=== PATIENT | female | born 1950 | race Caucasian/White ===

== ENCOUNTER 2020-06-04 22:41 | Inpatient (IN) | payer OTHER ==
[~2020-06-04] VITALS: Ht 162.6 cm; Wt 67.0 kg
--- NOTE | 2020-06-04 22:46 | PHYS DOC ---
Past History Past Medical History: Anxiety, Arthritis, Bipolar, Bronchitis, Constipation, Dementia, Depression, Fibromyalgia, GERD, Hypertension, Hypothyroid, Schizophrenia, Other Past Medical History Restless leg syndrome, vitamin D deficiency, dystonia, a effective mood disorder, urinary retention, chronic pain, dysphagia, insomnia, Parkinson, rheumatic aortic stenosis, vitamin D deficiency, patient has been designated as DNR, Hx of Falls Past Surgical History: Other General Adult HPI: HPI: - " They said she is not her normal self.. not been taking any her meds the last two days.. She seem more out of it. .. since 8...pm... 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 Patient is a resident at [facility] since 06/17/2019. Patient has a long history of multiple medical problems-dystonia, restless leg syndrome, GI bleeds, urinary retention, hypothyroidism, vitamin D deficiency, hyperlipidemia, schizoaffective disorder, bipolar, depression with psychotic features, major mood depressive episodes, affective mood disorder, abnormal posture and gait disorder, bipolar, dependent on wheelchair, dystonia, hypothyroidism, anxiety disorder, chronic constipation, dysphagia, difficult initiating oral pharyngeal phase of swallowing, chronic edema, hyperlipidemia, chronic insomnia, generalized de conditioning and weakness, parkinson, aortic stenosis, history of rheumatic heart disease, vitamin D deficiency, history of falls, tremor and dementia. Patient reportedly is a DNR. Patient per nursing has not taken any her meds the last 2 days. Patient has been refusing meds. Patient currently requires wheelchair because of down turned feet and leg stiffness. Patient per [facility] has not had any low glucose, fevers, specific ill contacts. No recent travel. No specific recent ill contacts. The patient's primary physician is Dr. Nallely Ureña. Review of Systems: Review of Systems: Pt. currently unable to give a review of systems due to mental status Family History: Family History: Family history is not currently available Current Medications: Current Meds: Patient's meds are unknown no meds sheet sent with patient. No verbal. Allergies: Allergies: Hydrin lotion sulfa,Escitalopram, oxcarbazepine Physical Exam: PE: Constitutional: no acute distress, non-toxic appearance. [] HENT: Normocephalic, atraumatic, bilateral external ears normal, oropharynx moist, no oral exudates, nose normal. [] Did have a good gag Eyes: PERRLA, EOMI, conjunctiva normal, crusty discharge. Attempts to close eyes tightly on exam. Neck: decreased range of motion, no tenderness, supple, no stridor. [] Cardiovascular:Heart rate regular rhythm, no murmur , PMI Lt Aortic systolic ejection murmur? Lungs & Thorax: Bilateral breath sounds equal at apex auscultation [] Abdomen: Bowel sounds normal, soft, no tenderness, no masses, no pulsatile masses. Diaper. Stool. No gross blood. Urinary incontinence. Skin: Warm, dry, no erythema, no rash. Poor turgor] Back: No tenderness, no CVA tenderness. Stiff Extremities: No tenderness, no cyanosis, no clubbing, limited range of motion, no edema. Down turned feet. Stiff legs. Legs are and foam gutters at ankles Neurologic does withdrawal to noxious stimuli, but does not totally cross-react, appears to have distal sensory,, will maintain catatonic positions (example-will hold arms out for several minutes if they are placed extended position-catatonic-) Mild upper hand fine tremor. Psychologic: Affect flat, judgement unable to determine, not verbally interactive ( Note by time pt. transfer to floor very interactive, answers questions, will move all ext. on request, but limited range in legs and feet. . Pt. request s tylenol and ice pack for infiltrated IV Lt forearm.) EKG: EKG: My interpretation EKG shows a sinus rhythm at 72 bpm. With no acute morphology [] Radiology/Procedures: Radiology/Procedures: [] IMAGING REPORT Signed PATIENT: GERARDO LORENZANA ACCOUNT: [id number] : 1950 LOCATION: ER AGE: 70 SEX: F EXAM STATUS: REG ER ORD. PHYSICIAN: SISI THORPE MD REASON: PATIENT FOUND UNRESPONSIVE PROCEDURE: PORTABLE CHEST 1V EXAM: PORTABLE CHEST 1V, CT HEAD AND CERVICAL SPINE WO INDICATION: Reason: PATIENT FOUND UNRESPONSIVE / Spl. Instructions: / History: . TECHNIQUE: Single view COMPARISON: None FINDINGS: The heart size is normal. The great vessels appear unremarkable. There is widening of the mediastinal contours to 8.9 cm, likely resulting from tortuosity of the thoracic aorta. The lungs are clear. There is no pleural effusion or pneumothorax. There are no significant osseous abnormalities. IMPRESSION: Mediastinal widening, potentially reflecting aortic tortuosity. More detailed assessment could be pursued with CT chest with and without IV contrast, angiographic protocol in further evaluation if clinically warranted. Otherwise no acute findings in the chest. EXAM: CT Head without IV contrast INDICATION: Reason: PATIENT FOUND UNRESPONSIVE / Spl. Instructions: / History: TECHNIQUE: Multi-detector row CT images were obtained of the head without the use of IV contrast. All CT scans performed at this facility utilize dose optimization techniques as appropriate to the exam, including the following: Automated exposure control and adjustment of the mA and/or KV according to patient size (this includes techniques or standardized protocols for targeted exams where dose is indication/reason for exam). COMPARISON: None FINDINGS: BRAIN PARENCHYMA: No evidence of acute intraparenchymal hemorrhage or infarct. Mild generalized parenchymal volume loss and white matter low density compatible chronic ischemic microvascular changes present. VENTRICLES & EXTRA-AXIAL SPACES: Ventricles are within normal limits. Basilar cisterns are patent. No pathologic extra-axial fluid collection or mass. ORBITS: Orbital contents are unremarkable. SINUSES: Visualized paranasal sinuses and mastoid air cells are clear. OSSEOUS & SOFT TISSUES: Calvarium and skull base are intact. IMPRESSION: No acute intracranial pathology. EXAM: CT Cervical Spine without IV contrast INDICATION: Reason: PATIENT FOUND UNRESPONSIVE / Spl. Instructions: / History: TECHNIQUE: Multi-detector row CT images were obtained through the cervical spine without the use of IV contrast. Post-processing sagittal and coronal reconstructed images were obtained for interpretation. All CT scans performed at this facility utilize dose optimization techniques as appropriate to the exam, including the following: Automated exposure control and adjustment of the mA and/or KV according to patient size (this includes techniques or standardized protocols for targeted exams where dose is indication/reason for exam). COMPARISON: None FINDINGS: CRANIOCERVICAL JUNCTION: Unremarkable. ALIGNMENT: Alignment is within normal limits. OSSEOUS: No evidence of fracture or bone destruction. DISC SPACES: Disc degenerative changes are noted. FACET JOINTS: Facet hypertrophic changes are present bilaterally. SPINAL CANAL: Unremarkable. NEUROFORAMINA: Unremarkable. SOFT TISSUES: Unremarkable. IMPRESSION: No acute traumatic findings in the cervical spine. Electronically signed by: Leonardo Rodriguez MD (06/04/2020 11:37 PM) [facility] [place] AND SIGNED BY: LEONARDO RODRIGUEZ MD DATE: 06/04/20 4446 CC: SISI THORPE MD; NALLELY UREÑA ~ Heart Score: HEART Score for Chest Pain: HEART Score for Chest Pain Response (Comments) Value History Slighlty/Non-Suspicious 0 ECG Normal 0 Age > 65 2 Risk Factors 1 or 2 Risk Factors 1 Troponin < Normal Limit 0 Total 3 Risk Factors: Risk Factors: DM, Current or recent (<one month) smoker, HTN, HLP, family history of CAD, obesity. Risk Scores: Score 0 - 3: 2.5% MACE over next 6 weeks - Discharge Home Score 4 - 6: 20.3% MACE over next 6 weeks - Admit for Clinical Observation Score 7 - 10: 72.7% MACE over next 6 weeks - Early Invasive Strategies Course & Med Decision Making: Course & Med Decision Making Pertinent Labs and Imaging studies reviewed. (See chart for details) Attempts to call family and primary. For guidance and information on her care. No Answers. Discussed presentation, testing and treatment plan with Dr. MIDDLETON. Admit with Treatment for UTI. Pt. did develope infiltrated IV in Lt forearm. Pt. at time of transfer to [facility] hospital pt. interactive. Moves ext. on request. Answers questions. Complaints infiltrations IV site Lt. forearm. Impression: 1. Mental Status Change 2. Hx of Refusing meds x 2 days ( However had + drug screen for Benzos) 3. Hyponatremia- min. 133 4. UTI 5. Parkinson 6. Hx. of Urinary Retention 7. Hx. Multiple Psych. Issues- Depression, Bipolar, Schizo affective, 8. De conditioned [] Dragon Disclaimer: Dragon Disclaimer: This electronic medical record was generated, in whole or in part, using a voice recognition dictation system. Departure Departure: Disposition: 01 DC HOME SELF CARE/HOMELESS Condition: STABLE Dragon Disclaimer This chart was dictated in whole or in part using Voice Recognition software in a busy, high-work load, and often noisy Emergency Department environment. It may contain unintended and wholly unrecognized errors or omissions. Dragon Disclaimer This chart was dictated in whole or in part using Voice Recognition software in a busy, high-work load, and often noisy Emergency Department environment. It may contain unintended and wholly unrecognized errors or omissions. SISI THORPE MD Jun 04, 2020 22:46
[2020-06-04 23:14] LABS: BASO # 0.1 x10^3/uL (0.0-0.2); BASO % 1 % (0-3); EOS # 0.3 x10^3/uL (0.0-0.7); EOS % 3 % (0-3); HEMATOCRIT 38.8 % (36.0-47.0); LYMPH # 2.4 x10^3/uL (1.0-4.8); LYMPH % 29 % (24-48); MEAN CORPUSCULAR HEMOGLOBIN 32 pg (25-35); MEAN CORPUSCULAR HGB CONC 34 g/dL (31-37); MEAN CORPUSCULAR VOLUME 96 fL (79-100); MONO # 0.7 x10^3/uL (0.0-1.1); MONO % 8 % (0-9); NEUT % 59 % (31-73); PLATELET COUNT 323 x10^3/uL (140-400); RED BLOOD COUNT 4.06 x10^6/uL (3.50-5.40); RED CELL DISTRIBUTION WIDTH 15.4 % (11.5-14.5); WHITE BLOOD COUNT 8.5 x10^3/uL (4.0-11.0)
[2020-06-04 23:24] LABS: CALCIUM 9.7 mg/dL (8.5-10.1); CREATININE 0.7 mg/dL (0.6-1.0); GFR 83.2; POTASSIUM 3.5 mmol/L (3.5-5.1)
[2020-06-04 23:30] LABS: MAGNESIUM 2.3 mg/dL (1.8-2.4)
--- NOTE | 2020-06-04 23:39 | RAD ---
EXAM: PORTABLE CHEST 1V, CT HEAD AND CERVICAL SPINE WO INDICATION: Reason: PATIENT FOUND UNRESPONSIVE / Spl. Instructions: / History: . TECHNIQUE: Single view COMPARISON: None FINDINGS: The heart size is normal. The great vessels appear unremarkable. There is widening of the mediastinal contours to 8.9 cm, likely resulting from tortuosity of the thoracic aorta. The lungs are clear. There is no pleural effusion or pneumothorax. There are no significant osseous abnormalities. IMPRESSION: Mediastinal widening, potentially reflecting aortic tortuosity. More detailed assessment could be pursued with CT chest with and without IV contrast, angiographic protocol in further evaluation if clinically warranted. Otherwise no acute findings in the chest. EXAM: CT Head without IV contrast INDICATION: Reason: PATIENT FOUND UNRESPONSIVE / Spl. Instructions: / History: TECHNIQUE: Multi-detector row CT images were obtained of the head without the use of IV contrast. All CT scans performed at this facility utilize dose optimization techniques as appropriate to the exam, including the following: Automated exposure control and adjustment of the mA and/or KV according to patient size (this includes techniques or standardized protocols for targeted exams where dose is indication/reason for exam). COMPARISON: None FINDINGS: BRAIN PARENCHYMA: No evidence of acute intraparenchymal hemorrhage or infarct. Mild generalized parenchymal volume loss and white matter low density compatible chronic ischemic microvascular changes present. VENTRICLES & EXTRA-AXIAL SPACES: Ventricles are within normal limits. Basilar cisterns are patent. No pathologic extra-axial fluid collection or mass. ORBITS: Orbital contents are unremarkable. SINUSES: Visualized paranasal sinuses and mastoid air cells are clear. OSSEOUS & SOFT TISSUES: Calvarium and skull base are intact. IMPRESSION: No acute intracranial pathology. EXAM: CT Cervical Spine without IV contrast INDICATION: Reason: PATIENT FOUND UNRESPONSIVE / Spl. Instructions: / History: TECHNIQUE: Multi-detector row CT images were obtained through the cervical spine without the use of IV contrast. Post-processing sagittal and coronal reconstructed images were obtained for interpretation. All CT scans performed at this facility utilize dose optimization techniques as appropriate to the exam, including the following: Automated exposure control and adjustment of the mA and/or KV according to patient size (this includes techniques or standardized protocols for targeted exams where dose is indication/reason for exam). COMPARISON: None FINDINGS: CRANIOCERVICAL JUNCTION: Unremarkable. ALIGNMENT: Alignment is within normal limits. OSSEOUS: No evidence of fracture or bone destruction. DISC SPACES: Disc degenerative changes are noted. FACET JOINTS: Facet hypertrophic changes are present bilaterally. SPINAL CANAL: Unremarkable. NEUROFORAMINA: Unremarkable. SOFT TISSUES: Unremarkable. IMPRESSION: No acute traumatic findings in the cervical spine. Electronically signed by: Alcides Rodriguez MD (06/04/2020 11:37 PM) [facility] [place]
[2020-06-04 23:49] LABS: BARBITURATES NEG (NEG); BENZODIAZEPINES POS (NEG); CANNABINOIDS NEG (NEG); COCAINE NEG (NEG); METHADONE NEG (NEG); OPIATES NEG (NEG); PHENCYCLIDINE NEG (NEG)
[2020-06-04 23:50] LABS: AMPHETAMINE/METHAMPHETAMINE NEG (NEG)
[2020-06-04 23:53] LABS: BACTERIA,URINE MANY /HPF (0-FEW); BILIRUBIN,URINE NEG (NEG); CLARITY,URINE HAZY; COLOR,URINE YELLOW; GLUCOSE,URINE NEG (NEG); NITRITE,URINE NEG (NEG); UROBILINOGEN,URINE 0.2 mg/dL (0.2 mg/dL); WBC,URINE >40 /HPF (0-4)
[2020-06-05] MEDS ORDERED: SODIUM BICARB ADULT 8.4% 50 MEQ/50 ML DISP.SYRIN. IV ONE (00:30)
[2020-06-05] MEDS ORDERED: cefTRIAXone SODIUM 1 GM VIAL ONE (00:33)
[2020-06-05] MEDS ORDERED: SODIUM BICARB ADULT 8.4% 50 MEQ/50 ML DISP.SYRIN. ONE (00:34)
[2020-06-05] MEDS ORDERED: ACETAMINOPHEN 160 MG/5 ML ORAL.SUSP. PO ONE (01:00)
[2020-06-05] MEDS ORDERED: ERYTHROMYCIN 0.5% OPHTH OINTMENT 1GM TUBE. OS ONE (01:00)
[2020-06-05] MEDS ORDERED: IV RINGERS SOLUTION,LACTATED 1,000 ML IV ONE (01:15)
[2020-06-05] MEDS ORDERED: ACETAMINOPHEN 325 MG TABLET PO PRN (01:15)
[2020-06-05 02:02] VITALS: BP 159/89
--- NOTE | 2020-06-05 02:06 | EKG ---
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
[2020-06-05] MEDS ORDERED: LACT1CAP2 PO (02:11)
[2020-06-05] MEDS ORDERED: ACET325T21 PO (02:11)
--- NOTE | 2020-06-05 02:59 | NUR ---
PT admitted for unresponsiveness at facility ([facility]). PT responsive in ER, in ambulance and on gurney while being taken to room. PT verbally unresponsive on assessment. PT will turn away while talking to her, respond to light pain, squeeze eyes shut, and when assessing IV and foot drop, would leave extremity in the air until told to lower the extremity. Per facility, PT is DNR, has refused all medications for the last several days and refused influenza vaccine. PT is wheelchair bound. Last COVID test resulted 06/03/20 negative from facility. PT goes by middle name of Christie. PT is incontinent of bowel and bladder. Incontinence assessed at time of admission. PT is clean, dry, placed in tabbed brief. Telemetry applied. PT is NSR on telemetry. PT with history of Parkinson's with subsequent dystonia and foot drop, multiple psych diagnoses, hypothyroidism, GERD with history of GI hemorrhage. See [facility] for further details. History and medication list obtained from facility paperwork and speaking with night RN.
[2020-06-05] MEDS ORDERED: TRAZ-120 PO (03:06)
[2020-06-05] MEDS ORDERED: HYDR-2155 PO (03:06)
[2020-06-05] MEDS ORDERED: NYST15PO9 TP (03:06)
[2020-06-05] MEDS ORDERED: ASPI81TA59 PO (03:06)
[2020-06-05] MEDS ORDERED: PANT40TA6 PO (03:06)
[2020-06-05] MEDS ORDERED: BENZ2TAB5 PO (03:06)
[2020-06-05] MEDS ORDERED: POTA15TA9 PO (03:06)
[2020-06-05] MEDS ORDERED: TRIH2TAB3 PO (03:06)
[2020-06-05] MEDS ORDERED: [UNRECOGNIZED DRUG - CODE] PO (03:06)
[2020-06-05] MEDS ORDERED: TRAM50TA PO (03:06)
[2020-06-05] MEDS ORDERED: TEMA15CA PO (03:06)
[2020-06-05] MEDS ORDERED: POLY17PO5 PO (03:06)
[2020-06-05] MEDS ORDERED: LEVO75TA5 PO (03:06)
[2020-06-05] MEDS ORDERED: ATOR20TA PO (03:06)
[2020-06-05] MEDS ORDERED: FURO-69 PO (03:06)
[2020-06-05] MEDS ORDERED: CHOL400T36 PO (03:06)
[2020-06-05] MEDS ORDERED: CLON1TAB PO (03:06)
[2020-06-05] MEDS ORDERED: VENL150C PO (03:06)
[2020-06-05] MEDS ORDERED: LORA0.5T21 PO (03:06)
[2020-06-05] MEDS ORDERED: APIX2.5T PO (03:06)
[2020-06-05] MEDS ORDERED: CALC-56 PO (03:06)
[2020-06-05] MEDS ORDERED: LOPE2TAB27 PO (03:06)
[2020-06-05] MEDS ORDERED: MULT-245 PO (03:06)
[2020-06-05] MEDS ORDERED: DOCU100C28 PO (03:06)
[2020-06-05] MEDS ORDERED: SENN1TAB99 PO (03:06)
[2020-06-05] MEDS ORDERED: FLUP5TAB13 PO (03:06)
[2020-06-05] MEDS ORDERED: LORA10TA55 PO (03:06)
[2020-06-05] MEDS ORDERED: IPRATRPIUM/ALBUTEROL 0.5/2.5MG 3 ML NEBU. ONE (05:06)
--- NOTE | 2020-06-05 05:29 | NUR ---
PT alert, responsive and talkative (able to carry a conversation fully) at time of breathing treatment per RT.
[2020-06-05 05:52] VITALS: BP 120/77
[2020-06-05] MEDS ORDERED: IPRATRPIUM/ALBUTEROL 0.5/2.5MG 3 ML NEBU. IH SCH (08:00)
[2020-06-05] MEDS ORDERED: POLYETHYLENE GLYCOL 3350 17 GM PACKET. PO PRN (08:45)
[2020-06-05] MEDS: ERYTHROMYCIN 0.5% OPHTH OINTMENT 1GM TUBE. OU SCH ×2 (08:52→21:13)
[2020-06-05] MEDS: LEVOTHYROXINE 75 MCG TABLET PO SCH (08:59)
[2020-06-05] MEDS: APIXABAN 2.5 MG TABLET PO SCH ×2 (08:59→21:13)
--- NOTE | 2020-06-05 09:49 | NUR ---
PATIENT IS IN E BED UPON ASSESSMENT THIS AM, UNRESPONSIVE TO THIS RN, KEEPS HER EYELIDS CLOSED VERY TIGHT, THIS RN UNABLE TO ADMINISTER OPHTHALMIC OINTMENT , PATIENT REFUSES TO OPEN HER MOUTH AND EYES TO TAKE MEDICATIONS. PATIENT SPOKE TO MONUMENT CARVER YOBANY THIS AM, PATIENT STATED HER APPETITE IS POOR AND SHE WILL SKIP THE BREAKFAST. PATIENT ALSO STATED SHE IS AFRAID OF DEMONS . PATIENT COOPERATED WITH MONUMENT CARVER DURING ADLS.
[2020-06-05] MEDS ORDERED: IPRATRPIUM/ALBUTEROL 0.5/2.5MG 3 ML NEBU. IH PRN (10:45)
[2020-06-05 11:12] VITALS: BP 137/75
--- NOTE | 2020-06-05 13:36 | NUR ---
PATIENT SPOKE TO THIS RN, STATED SHE UNABLE TO EAT HER LUNCH D/T NAUSEA. ZOFRAN WAS OFFERED ORDERED , PATIENT REFUSED TO HAVE ZOFRAN ADMINISTERED, PATIENT STATED SHE WILL TRY TO HAVE ENSURE. PATIENT TOLERATED ENSURE 240 ML WITHOUT N/V.
[2020-06-05 15:07] VITALS: BP 108/73
[2020-06-05] MEDS: ONDANSETRON PF 4 MG/2 ML VIAL. IVP PRN ×2 (17:01→21:21)
--- NOTE | 2020-06-05 17:12 | NUR ---
PATIENT HAD ONE EPISODE OF NAUSEA WITH VOMITING BEFORE DINNER TIME. ZOFRAN GIVEN ORDERED . PATIENT STATED SHE WON'T EAT DINNER BUT WOULD LIKE MORE ENSURE LATER.
[2020-06-05] MEDS: IV RINGERS SOLUTION,LACTATED 1,000 ML IV SCH (17:49)
--- NOTE | 2020-06-05 18:30 | HP ---
ADMIT DATE: 06/05/2020 ATTENDING PHYSICIAN: Dr. Middleton. CHIEF COMPLAINT: Altered mentation. HISTORY OF PRESENT ILLNESS: The patient is a 70-year-old female, long-term residential resident with multiple medical and psychiatric issues. She was sent in to the ED because the nursing staff there said she has not been taking any of her meds for the last 2 days. She does not seem herself. Clinically, she appears in a catatonic state. She is nonverbal. The workup did not show anything significant. She has had a longstanding history of schizoaffective disorder, depression, dementia, bipolar disorder. She also has anxiety, hypertension, hypothyroidism, gastroesophageal reflux disease, vitamin D deficiency, dystonia, mood disorder, urinary retention, Parkinson's disease, rheumatic aortic stenosis, vitamin D deficiency. She is a DNR per advance directive. She is nonambulatory. PAST MEDICAL HISTORY: Significant for the above conditions. MEDICATIONS: At the residential include the following: She was on scheduled Eliquis, loratadine, Lipitor, aspirin, hydrocodone p.r.n., tramadol p.r.n., Tylenol, Klonopin, trazodone, Effexor, fluphenazine, lorazepam, Restoril, benztropine, Artane, potassium, calcium, Lasix, lactobacillus, loperamide, docusate, MiraLax, senna, Synthroid, nystatin, vitamin D3 and multivitamin. ALLERGIES: She has multiple allergies including LAC-HYDRIN SOLUTION, SULFA, CITALOPRAM AND OXCARBAZEPINE. SOCIAL HISTORY: She is a nonsmoker, nondrinker. FAMILY HISTORY: Unobtainable. REVIEW OF SYSTEMS: Unobtainable. PHYSICAL EXAMINATION: GENERAL: When I saw her, this is an elderly female who is in a fairly catatonic state. She was nonresponsive. Her fists were somewhat clenched. INITIAL VITAL SIGNS: Showed a blood pressure of 120/77 mmHg, temperature 98.2 degrees Fahrenheit, pulse 81 and regular, oxygen saturation 98% on room air. HEENT: Head is without trauma. Pupils are reactive and pinpoint. NECK: Supple. No bruits. LUNGS: Otherwise clear with shallow respirations. CARDIOVASCULAR: Showed regular heart tones. There is a soft, grade 2, early systolic ejection murmur at the left sternal border. Peripheral pulses are palpable and full. ABDOMEN: Soft, scaphoid, nontender. No organomegaly. Bowel sounds are hypoactive. EXTREMITIES: Without edema. Both of her ankles are contracted and turned inward. She is nonambulatory at this time. SKIN: Otherwise warm and dry. NEUROLOGIC: The patient is nonresponsive. She is not aware of person, place or time. The obligatory CT of the head showed no acute changes. Cervical spine films are unremarkable. LABORATORY DATA: The chest x-ray showed a widened mediastinum, tortuous aorta, no acute changes identified. The hemoglobin is 13.0 g/dL with a white count of 8500. Electrolytes are fairly normal. Sodium is 133, creatinine 0.7 mg percent. Cardiac enzymes were negative. Nonfasting blood sugar 114. Troponin was nonischemic. Ammonia level was less than 10 and C-reactive protein looking for inflammation was normal at 1.1. ASSESSMENT: 1. A 70-year-old female with altered mentation. 2. Catatonia. 3. Schizoaffective disorder. 4. Bipolar disorder. 5. Polypharmacy. 6. Generalized debilitation. 7. Hypothyroidism, on replacement. 8. Hypertension. 9. Muscular contractures and the patient is nonambulatory. PLAN: 1. Admit to our inpatient unit. 2. I have held most of her psych meds and her narcotics. 3. Diet as tolerated. 4. We shall arrange with social media director to have a safe discharge plan back to the residential. QIAN MIDDLETON MD DR: YAO/caleb JOB#: [id number] / [id number]
[2020-06-05 19:51] VITALS: BP 136/76
[2020-06-05] MEDS: LACTOBACILLUS RHAMNOSUS GG 1 CAPSULE. PO SCH (21:13)
[2020-06-06] VITALS (7 sets, daily range): BP systolic 14–165; BP diastolic 71–87
[2020-06-06] MEDS: LEVOTHYROXINE 75 MCG TABLET PO SCH (05:52)
[2020-06-06 06:16] LABS: BASO # 0.1 x10^3/uL (0.0-0.2); BASO % 1 % (0-3); EOS # 0.2 x10^3/uL (0.0-0.7); EOS % 3 % (0-3); HEMOGLOBIN 12.3 g/dL (12.0-15.5); LYMPH # 1.3 x10^3/uL (1.0-4.8); LYMPH % 26 % (24-48); MEAN CORPUSCULAR HEMOGLOBIN 32 pg (25-35); MEAN CORPUSCULAR HGB CONC 33 g/dL (31-37); MEAN CORPUSCULAR VOLUME 96 fL (79-100); MONO # 0.5 x10^3/uL (0.0-1.1); MONO % 10 % (0-9); NEUT # 3.1 x10^3uL (1.8-7.7); NEUT % 60 % (31-73); PLATELET COUNT 284 x10^3/uL (140-400); RED BLOOD COUNT 3.84 x10^6/uL (3.50-5.40); RED CELL DISTRIBUTION WIDTH 15.2 % (11.5-14.5); WHITE BLOOD COUNT 5.1 x10^3/uL (4.0-11.0)
[2020-06-06 06:21] LABS: CALCIUM 9.1 mg/dL (8.5-10.1); CREATININE 0.7 mg/dL (0.6-1.0); GFR 83.2; POTASSIUM 3.1 mmol/L (3.5-5.1)
[2020-06-06] MEDS: LACTOBACILLUS RHAMNOSUS GG 1 CAPSULE. PO SCH ×2 (08:16→21:00)
[2020-06-06] MEDS: IV RINGERS SOLUTION,LACTATED 1,000 ML IV SCH (08:16)
[2020-06-06] MEDS: PANTOPRAZOLE 40 MG TABLET. PO SCH (08:16)
[2020-06-06] MEDS: APIXABAN 2.5 MG TABLET PO SCH ×2 (08:16→21:00)
--- NOTE | 2020-06-06 08:42 | NUR ---
NURSING NOTE: CRITICAL LAB BLOOD CULTURES GRAM + COCCI IN CLUSTERS, IN 1 OF 3 BOTTLES. [address] MIDDLETON ON FLOOR AT TIME OF NOTIFICATION AND STATED PT ON CORRECT ABX FOR TX AT THIS TIME. ROB CHENG
[2020-06-06] MEDS: ERYTHROMYCIN 0.5% OPHTH OINTMENT 1GM TUBE. OU SCH ×2 (09:43→21:00)
[2020-06-06] MEDS ORDERED: MAGNESIUM SULFATE 1GM 100 ML IV ONE (09:45)
[2020-06-06] MEDS ORDERED: POTASSIUM CHLORIDE 20 MEQ TABLET.ER. PO ONE (10:00)
[2020-06-06] MEDS: ONDANSETRON PF 4 MG/2 ML VIAL. IVP PRN (10:05)
--- NOTE | 2020-06-06 10:12 | PN ---
DATE: 06/06/2020 ATTENDING PHYSICIAN: Dr. Middleton. SUBJECTIVE: The patient is much more alert today. She is talking. We had a fairly normal conversation. She says she felt a little queasy. I believe yesterday she was in a catatonic state and she was maybe having a conversion reaction. In any event, we held most of her psychotropic meds. She was not in any acute distress. OBJECTIVE FINDINGS: VITAL SIGNS: Blood pressure today is 131/73 mmHg, her temperature is 98.2 degrees Fahrenheit, oxygen saturation 97% on room air and pulse is 73 and regular. HEENT: Head is without trauma. Pupils are reactive. Sclerae nonicteric. Oropharynx clear. NECK: Supple. LUNGS: Good breath sounds. CARDIOVASCULAR: Showed regular heart tones. No gallops. ABDOMEN: Soft. EXTREMITIES: Without edema. NEUROLOGIC: She has contractures of her ankles. She is nonambulatory. SKIN: Otherwise warm and dry. LABORATORY DATA: One blood culture is tentatively positive for gram-positive cocci. I suspect this is a contaminant. Clinically, she does not appear septic. We are treating her for symptomatic urinary tract infection. She has been on Rocephin. PERTINENT LABORATORY STUDIES: Repeat hemoglobin is 12.3 g/dL, white count 5100. Electrolytes: Sodium 139, potassium 3.1 mEq. ASSESSMENT: A 70-year-old senior living resident with; 1. Altered mentation due to overmedication, improved. 2. Catatonic state, resolved. 3. Longstanding history of schizoaffective disorder. 4. Bipolar disorder. 5. Polypharmacy. 6. Generalized debilitation. 7. Hypothyroidism, on replacement. 8. Hypertension. 9. Muscular contractures. 10. Hypokalemia, asymptomatic. 11. Bacteremia, most likely contaminant. Clinically, she is not septic. 12. Urinary tract infection. PLAN: 1. Continue antibiotics as ordered. 2. I have simplified her psychiatric meds. 3. Potassium and magnesium replacement. 4. Advance diet as tolerated. 5. Pending results of blood cultures, should the blood culture be a contaminant. She can be discharged back to senior living tomorrow with oral antibiotics for her UTI. QIAN MIDDLETON MD DR: YAO/caleb JOB#: [id number] / [id number]
--- NOTE | 2020-06-06 10:25 | NUR ---
NURSING NOTE: PT IN BED UPON ASSESSMENT AND MEDICATION ADMINISTRATION. PT COOPERATIVE WITH MEDICATIONS, REQUESTED THEY BE CRUSHED. PT COMPLAINED OF UPSET STOMACH. ZOFRAN ORDERS RECEIVED. PT RESTING COMFORTABLY. WILL CONTINUE TO MONITOR. ROB CHENG
[2020-06-07] MEDS: ONDANSETRON PF 4 MG/2 ML VIAL. IVP PRN (02:32)
[2020-06-07 05:13] VITALS: BP 147/94
[2020-06-07] MEDS: LEVOTHYROXINE 75 MCG TABLET PO SCH (05:36)
[2020-06-07] MEDS: IV RINGERS SOLUTION,LACTATED 1,000 ML IV SCH (05:36)
[2020-06-07] MEDS: LACTOBACILLUS RHAMNOSUS GG 1 CAPSULE. PO SCH ×3 (08:12→22:10)
[2020-06-07] MEDS: APIXABAN 2.5 MG TABLET PO SCH ×3 (08:13→22:10)
[2020-06-07] MEDS: PANTOPRAZOLE 40 MG TABLET. PO SCH (08:13)
[2020-06-07] MEDS: ERYTHROMYCIN 0.5% OPHTH OINTMENT 1GM TUBE. OU SCH ×3 (08:15→22:09)
[2020-06-07 10:37] VITALS: BP 170/91
[2020-06-07 13:00] VITALS: BP 173/79
[2020-06-07 15:17] VITALS: BP 178/84
[2020-06-07] MEDS: POTASSIUM CL 40MEQ D5-0.45NACL 1,000 ML IV SCH (15:52)
[2020-06-07 20:01] VITALS: BP 157/82
[2020-06-07 23:12] VITALS: BP 168/97
--- NOTE | 2020-06-07 23:15 | NUR ---
CONTACT ISOLATION PT'S FINAL URINE CULTURE AND SENSITIVITY SHOWS E. COLI ESBL. PT PLACED IN CONTACT PRECAUTIONS PER PROTOCOL.
--- NOTE | 2020-06-07 23:20 | NUR ---
PT ABLE TO SWALLOW MEDS WHOLE SUSPENDED IN VANILLA PUDDING, TOLERATED WELL. PT MORE INTERACTIVE TONIGHT. WILLINGLY CONVERSING AND ABLE TO V/U WHEN EDUCATED ON IV ABT.
--- NOTE | 2020-06-08 01:56 | PN ---
DATE: 06/07/2020 SUBJECTIVE: The patient is a 70-year-old female patient, a resident at [facility], who was admitted with altered mental status, has been refusing her medication for today. She was found to be hyponatremic, has Parkinson's disease and was diagnosed with UTI. Her urine culture has grown more than 100,000 colony forming units per mL of Escherichia coli that is extended spectrum beta lactamase. She also has grown gram-positive cocci in the blood culture 1 out of 3 bottles, the growth of Staphylococcus epidermidis. The patient also continued to be refusing her medication. Here she is hypokalemic with a potassium of only 3.1, and therefore, the patient will be switched to IV D5 half normal with 40 mEq of potassium chloride. I will switch her antibiotics, she has ESBL and we will repeat her labs tomorrow and hopefully discharge her back to [facility] tomorrow. CHANO ESCUDERO MD DR: ERICH/caleb JOB#: [id number] / [id number]
[2020-06-08] MEDS: POTASSIUM CL 40MEQ D5-0.45NACL 1,000 ML IV SCH ×3 (02:45→20:46)
[2020-06-08 05:20] VITALS: BP 137/88
[2020-06-08] MEDS: LEVOTHYROXINE 75 MCG TABLET PO SCH (06:33)
[2020-06-08 06:43] LABS: ALBUMIN 3.4 g/dL (3.4-5.0); ALBUMIN/GLOBULIN RATIO 0.9 (1.0-1.7); CALCIUM 9.2 mg/dL (8.5-10.1); CREATININE 0.6 mg/dL (0.6-1.0); GFR 99.4; POTASSIUM 3.7 mmol/L (3.5-5.1); TOTAL BILIRUBIN 0.3 mg/dL (0.2-1.0); TOTAL PROTEIN 7.2 g/dL (6.4-8.2)
[2020-06-08] MEDS: PANTOPRAZOLE 40 MG TABLET. PO SCH (07:30)
[2020-06-08] MEDS: LACTOBACILLUS RHAMNOSUS GG 1 CAPSULE. PO SCH ×2 (07:58→20:44)
[2020-06-08] MEDS: APIXABAN 2.5 MG TABLET PO SCH ×2 (07:58→20:44)
[2020-06-08] MEDS: ERYTHROMYCIN 0.5% OPHTH OINTMENT 1GM TUBE. OU SCH ×2 (07:58→20:44)
--- NOTE | 2020-06-08 08:48 | NUR ---
IP: patient has ESBL in urine, requires contact precautions.
[2020-06-08 10:33] VITALS: BP 146/84
--- NOTE | 2020-06-08 13:37 | NUR ---
NURSING NOTE: PT RESTING IN BED UPON ASSESSMENT. PT REFUSED MEDICATION THIS AM. PT WOULD NOT RESPOND TO ANY QUESTIONS AT THE TIME OF THE ASSESSMENT. PT WAS CLENCHING HER TEETH. PT BEGAN TO TALK AND RESPOND TO QUESTIONS AFTER LUNCH AND WAS CALM AND COOPERATIVE WITH DAILY CARES AT THIS TIME. WILL CONTINUE TO MONITOR. ROB CHENG
--- NOTE | 2020-06-08 14:40 | NUR ---
NURSING NOTE PICC CONSENT ROB CHU SPOKE WITH PT SISTER, DIANA, TO OBTAIN VERBAL CONSENT TO PLACE PICC LINE AFTER DISCUSSING BENEFITS AND RISKS. PT SISTER AGREE'S TO HAVE PICC PLACED. ROB CARCAMO.
[2020-06-08 14:52] VITALS: BP 156/81
[2020-06-08] MEDS ORDERED: ERTAPENEM 1 GM in IV NORMAL SALINE 50ML 50 ML IV SCH (17:00)
--- NOTE | 2020-06-08 17:02 | NUR ---
Order Verified Yes Consent signed Yes TOV per 2 RNs with Kaity You Pt sister Previous PICC placement Unk Past Medical/Surgical history and current diagnosis reviewed Yes Patient Medical /Surgical History Related to PICC line placement None Special considerations for PICC line placement None PICC placement indication alf antibiotic usage, Name of PICC Nurse Tiffanie Davidson RN
--- NOTE | 2020-06-08 17:03 | NUR ---
Procedure: Following complete explanation of the PICC procedure including the indications, risks, and potential complications, informed consent was obtained over phone with patient's sister per 2 RNS The possibility for infection was discussed along with signs, symptoms, and prevention. All the sister's questions were answered. IV Device Protocol was used. Written and verbal patient education was provided. Hand hygiene performed. Standardized central line checklist was utilized. The patient was placed in the supine position, patient did not have a large enough vessel for a picc in the right arm, the left arm was prepped with chlorhexidine and patient draped with maximum sterile barrier. 1 mL 1% lidocaine was infiltrated into the skin to provide local anesthesia. A thorough assessment of the left upper extremity completed. Using real-time ultrasound guidance and standardized micro puncture set, the brachial vein was punctured and a peel away sheath was placed using the modified Seldinger technique. A tip location device was used to ensure adequate catheter placement. The catheter was secured using a securement device and an antimicrobial patch was applied directly on the insertion site followed by a transparent dressing. The purple port withdrew blood and flushed without resistance. Patient tolerated the procedure without apparent complication. A Single Lumen Power PICC placement successful and uncomplicated. Placement verified by EKG tip confirmation system napoleon borjas and ekg observed. Tip located in the low SVC per 3CG Complications: None
[2020-06-08 20:27] VITALS: BP 157/95
--- NOTE | 2020-06-08 20:58 | PDOC ---
Exam Note: Maurizio Note: Please also refer to the separate dictated note~for this date of service dictated separately. Discussed the patient with Nursing staff reviewed the chart.~Reviewed interim history and current functioning. Reviewed vital signs,~Labs/ Radiology~and current medications noted below. Continue current treatment with the changes noted in the dictated addendum note Assessment: Vital Signs/I&O: Vital Signs Date Time Temp Pulse Resp B/P (MAP) Pulse Ox O2 Delivery O2 Flow Rate FiO2 06/08/20 20:27 98.8 90 20 157/95 (115) 96 Room Air I & O 06/07/20 06/07/20 06/08/20 15:00 23:00 07:00 Intake Total 740 ml 1250 ml Balance 740 ml 1250 ml Labs: Laboratory Tests Test 06/08/20 06:03 Sodium Level 136 mmol/L (136-145) Potassium Level 3.7 mmol/L (3.5-5.1) Chloride Level 101 mmol/L (98-107) Carbon Dioxide Level 25 mmol/L (21-32) Anion Gap 10 (6-14) Blood Urea Nitrogen 7 mg/dL (7-20) Creatinine 0.6 mg/dL (0.6-1.0) Estimated GFR (Cockcroft-Gault) 99.4 BUN/Creatinine Ratio 12 (6-20) Glucose Level 116 mg/dL (70-99) H Calcium Level 9.2 mg/dL (8.5-10.1) Total Bilirubin 0.3 mg/dL (0.2-1.0) Aspartate Amino Transferase (AST) 14 U/L (15-37) L Alanine Aminotransferase (ALT) 21 U/L (14-59) Alkaline Phosphatase 94 U/L (46-116) Total Protein 7.2 g/dL (6.4-8.2) Albumin 3.4 g/dL (3.4-5.0) Albumin/Globulin Ratio 0.9 (1.0-1.7) L Current Medications: Meds: Current Medications Medications (Trade) Dose Ordered Sig/Jason Route PRN Reason Start Time Stop Time Status Last Admin Dose Admin Cefoxitin Sodium 1 gm/Sodium Chloride 50 ml @ 100 mls/hr Q8HRS IV 06/07/20 22:30 06/08/20 16:26 DC 11/5/20 14:02 Ertapenem 1 gm/ Sodium Chloride 50 ml @ 100 mls/hr Q24H IV 06/08/20 17:00 06/08/20 17:16 I have reviewed the current psychotropics carefully including drug interactions. Risk benefit ratio favors no change other than as noted in my dictated progress note. Diagnosis: Problems: (1) Mental status alteration EZ HANSEN MD Jun 08, 2020 20:58
--- NOTE | 2020-06-08 22:30 | PN ---
DATE: 06/08/2020 SUBJECTIVE: The patient's is resting, slightly propped up in bed, sleeping comfortably, in no apparent distress. On questioning her, she denied any complaints. Nursing staff stated that she continued to have episodes and she stopped talking to people. PHYSICAL EXAMINATION: GENERAL: When I examined her, she looked pale, no jaundice, cyanosis or thyromegaly. No jugular venous distention. No limb edema. VITAL SIGNS: Her heart rate was 86, blood pressure 156/81, temperature was 99.1, respiratory rate 20, and oxygen saturation was 97%. The rest of clinical exam is stable, has not really changed. Her intake over the last 24 hours was 2690, no output was recorded. LABORATORY DATA: Her lab work this morning showed her serum sodium was 136, potassium 3.7, chloride 101, bicarbonate 25, anion gap of 10, BUN 7, creatinine 0.6, estimated GFR was 99 mL per minute. Her glucose 116, calcium was 9.2. Total bilirubin, AST, ALT, alkaline phosphatase were normal. Total protein 7.1, albumin was 3.4. Her white cell count was 5100, hemoglobin 12, hematocrit 37, MCV 96, and platelet count of 284,000. ASSESSMENT: 1. Altered mental status, resolved. 2. Hyponatremia, resolved. She has urinary tract infection with growth of more than 100,000 colony forming units per mL of ESBL Escherichia coli. 3. She also has grown gram-positive cocci in the blood culture 1/3 with a growth of Staphylococcus epidermidis, likely contamination. 4. Hypokalemia that has resolved. PLAN: To continue with IV D5 half normal with 40 mEq potassium. Continue with cefoxitin. The patient has had a PICC line and tomorrow, she will be switched to ertapenem and to be treated as an outpatient at [facility] to continue 7 days of treatment for her ESBL Escherichia coli. CHANO ESCUDERO MD DR: ERICH/caleb JOB#: [id number] / [id number]
[2020-06-08 23:07] VITALS: BP 146/85
--- NOTE | 2020-06-08 23:26 | NUR ---
PT CHOOSING NOT TO INTERACT THIS EVENING. PT ALLOWED ASSESSMENT, BUT WOULD NOT RESPOND TO ORIENTATION QUESTIONS. PT REFUSED HS MEDS AFTER MULTIPLE ATTEMPTS. PT WITH GREEN DRAINAGE FROM LEFT EYE. PT DID ALLOW THIS RN TO WIPE EYES WITH A WARM CLOTH AND ABT OINTMENT TO BE APPLIED. PT ON Q2HR TURNING SCHEDULE, INCONT OF URINE. BRIEF AND CHUX CHANGED X2 ASSIST. PT OTHERWISE RESTING COMFORTABLY IN BETWEEN TURNS.
[2020-06-09] MEDS: LEVOTHYROXINE 75 MCG TABLET PO SCH (06:00)
[2020-06-09 06:03] VITALS: BP 135/87
[2020-06-09] MEDS: PANTOPRAZOLE 40 MG TABLET. PO SCH (07:30)
[2020-06-09] MEDS: APIXABAN 2.5 MG TABLET PO SCH (08:36)
[2020-06-09] MEDS: ERYTHROMYCIN 0.5% OPHTH OINTMENT 1GM TUBE. OU SCH (08:36)
[2020-06-09] MEDS: LACTOBACILLUS RHAMNOSUS GG 1 CAPSULE. PO SCH (08:36)
[2020-06-09] MEDS ORDERED: ERTA1VIA16 IV (09:09)
--- NOTE | 2020-06-09 10:08 | NUR ---
DISCHARGEPt discharge via [facility]. Pt assisted to stretch for transport to [facility]. SLPICC remains in (L) UE, flushed et capped. Foot pillow (black) and all other possessions sent with patient at time of discharge. Packet sent with EMS providers. Report called to facility.
== END 2020-06-09 10:08 | DRG 640 ==
LOC: ER 22:41 → 1 SOUTH 06-05 01:38
PROVIDERS: ADMIT Hospitalist; ATTEND Hospitalist
DX: E87.1 Hypo-osmolality and hyponatremia (principal); G93.41 Metabolic encephalopathy; N39.0 Urinary tract infection, site not specified; F20.2 Catatonic schizophrenia; G20 Parkinson's disease; E87.6 Hypokalemia; F02.80 Dementia in other diseases classified elsewhere, unspecified severity, without behavioral disturbance, psychotic disturbance, mood disturbance, and anxiety; F31.9 Bipolar disorder, unspecified; F41.9 Anxiety disorder, unspecified; I10 Essential (primary) hypertension; E03.9 Hypothyroidism, unspecified; K21.9 Gastro-esophageal reflux disease without esophagitis; Z66 Do not resuscitate; M79.7 Fibromyalgia; T50.905A Adverse effect of unspecified drugs, medicaments and biological substances, initial encounter; G25.81 Restless legs syndrome; G89.29 Other chronic pain; M19.90 Unspecified osteoarthritis, unspecified site; R53.81 Other malaise; B96.20 Unspecified Escherichia coli [E. coli] as the cause of diseases classified elsewhere; B95.8 Unspecified staphylococcus as the cause of diseases classified elsewhere; E55.9 Vitamin D deficiency, unspecified; E78.5 Hyperlipidemia, unspecified; G24.9 Dystonia, unspecified; I06.0 Rheumatic aortic stenosis; Z91.81 History of falling; Z88.2 Allergy status to sulfonamides; Z88.8 Allergy status to other drugs, medicaments and biological substances; Z91.041 Radiographic dye allergy status; Z99.3 Dependence on wheelchair
CPT/HCPCS: 36415; 36569; 70450; 71045; 72125; 80048; 80053; 80307; 81001; 82140; 82550; 82947; 83735; 84443; 84484; 85025; 85610; 85730; 86140; 87040; 87077; 87086; 87186; 87205; 93005; 94640; 96365; 96375; 99285; J0694; J0696; J1335; J2405; J3475; J7042; J7120

== ENCOUNTER 2020-09-26 09:53 | Inpatient (IN) | payer OTHER ==
[~2020-09-26] VITALS: Ht 152.4 cm; Wt 64.7 kg
[~2020-09-26 09:53] MED LIST: ACET325T21 PO; APIX2.5T PO; ASPI81TA59 PO; ATOR20TA PO; BENZ2TAB5 PO; CALC-56 PO; CHOL400T36 PO; CLON1TAB PO; DOCU100C28 PO; ERTA1VIA16 IV; FLUP5TAB13 PO; FURO-69 PO; HYDR-2155 PO; LACT1CAP2 PO; LEVO75TA5 PO; LOPE2TAB27 PO; LORA-52 PO; LORA0.5T21 PO; MULT-245 PO; NYST15PO9 TP; PANT40TA6 PO; POLY17PO5 PO; POTA15TA9 PO; SENN1TAB99 PO; TEMA15CA PO; TRAM50TA PO; TRAZ-120 PO; TRIH2TAB3 PO; VENL150C PO; [UNRECOGNIZED DRUG - CODE] PO
[2020-09-26] MEDS ORDERED: IV NORMAL SALINE 1,000ML 1,000 ML IV ONE ×2 (10:00→14:15)
[2020-09-26] MEDS ORDERED: ONDANSETRON PF 4 MG/2 ML VIAL. IVP ONE (10:00)
[2020-09-26] MEDS ORDERED: FAMOTIDINE 20 MG/2 ML VIAL IVP ONE (10:00)
--- NOTE | 2020-09-26 10:22 | PHYS DOC ---
Past History Past Medical History: Anxiety, Arthritis, Bipolar, Bronchitis, Constipation, Dementia, Depression, Fibromyalgia, GERD, Hypertension, Hypothyroid, Schizophrenia, Other Additional Past Medical Histor: Parkinsonism,muscle weakness, abonormal posture;rheumatic aortic stenosis Past Medical History Limited secondary to poor historian and history of dementia. Past Surgical History: Other Additional Past Surgical Histo: unknown surgical hx Past Surgical History Limited secondary to poor historian and history of dementia. Smoking: Non-smoker Alcohol Use: None Drug Use: None Social History Limited secondary to poor historian and history of dementia. General Adult EDM: Chief Complaint: GI PROBLEM HPI: HPI: Patient is a 70 year old female who presents with vomiting and toe pain. The patient comes to the ED from [facility] [place] and is demented at her baseline which limited the history. Patient with history of dementia and parkinsonism. According to her facility she vomited that "looked like stool". She was sweating upon exam, but that is apparently her baseline. She denies feeling feverish, but reports some feeling "hot". Denies diarrhea or any shortness of breath or chest pain. She notes that her toes are currently in a lot of pain for which she is asking for medication. She does have a additional history of rheumatoid arthritis. Limited secondary to poor historian and history of dementia. Review of Systems: Review of Systems: Constitutional: Denies fever; reports feeling "hot" Respiratory: Denies cough or shortness of breath Cardiovascular: Denies chest pain or palpitations GI: Reports abdominal pain and vomiting : Denies dysuria or hematuria Musculoskeletal: Denies back pain. Notes some pain in the digits of her feet. Integument: Denies rash or skin lesions Neurologic: Denies headache, focal weakness or sensory changes Review of systems limited secondary to poor historian and history of dementia. Current Medications: Current Meds: Current Medications Medications (Trade) Dose Ordered Sig/Jason Start Time Stop Time Status Last Admin Dose Admin Famotidine (Pepcid Vial) 20 mg 1X ONCE 09/26/20 10:00 09/26/20 10:02 DC 09/26/20 10:13 20 MG Fentanyl Citrate (Fentanyl 2ml Vial) 50 mcg 1X ONCE 09/26/20 10:15 09/26/20 10:16 UNV Ondansetron HCl (Zofran) 4 mg 1X ONCE 09/26/20 10:00 09/26/20 10:02 DC 09/26/20 10:13 4 MG Sodium Chloride 1,000 ml @ 1,000 mls/hr 1X ONCE 09/26/20 10:00 09/26/20 10:59 09/26/20 10:13 1,000 MLS/HR Allergies: Allergies: Allergies Coded Allergies Type Severity Reaction Last Updated Verified I S O L A T I O N *CONTACT* Allergy Unknown 06/08/20 Yes Sulfa (Sulfonamide Antibiotics) Allergy Unknown 06/07/20 Yes escitalopram Allergy Unknown 06/04/20 Yes oxcarbazepine Allergy Unknown 06/04/20 Yes Uncoded Allergies Type Severity Reaction Last Updated Verified LAC HYDRIN LOTION Allergy Unknown 06/04/20 Physical Exam: PE: Constitutional: Well developed, well nourished, no acute distress HENT: Normocephalic, atraumatic Eyes: PERRL, EOMI, conjunctiva normal, no discharge Neck: Normal range of motion, no tenderness, supple Lungs & Thorax: No respiratory distress, equal chest rise and fall Abdomen: Soft, no tenderness, distention noted, rectal exam with hard stool at fingertips at rectal vault, unable to remove (Xavier Gottlieb RN) Skin: Warm, dry, no erythema, no rash Extremities: No tenderness, limited ROM due to rigidity of extremities Neurologic: Alert and oriented X 2, hypertonic limbs Psychologic: Affect normal, patient is confused which is her baseline. EKG: EKG: [] Radiology/Procedures: Radiology/Procedures: PROCEDURE: CT ABD PELV W/ IV CONTRST ONLY CT ABDOMEN+PELVIS W History: Reason: abdominal pain, N/V eval for obstruction / Spl. Instructions: / History: Comparison: None. Technique: CT of the abdomen and pelvis with intravenous contrast. Findings: Minimal bibasilar atelectasis. No pleural or pericardial effusion. Visualized liver is unremarkable. Layering density within the gallbladder may represent sludge or small stones. No biliary ductal dilatation. Mild pancreatic atrophy. Unremarkable spleen and adrenal glands. Unremarkable kidneys. No bladder wall thickening. Incompletely visualized moderate hiatal hernia. No evidence of small bowel obstruction. Mild equalization of the terminal ileum. Extensive well-formed stool distends the entire colon to the rectum. The rectum is dilated to 8.7 cm without evidence of wall thickening or pneumatosis. No pelvic masses. No free fluid or free air. Mild aortoiliac atherosclerotic calcification. No abdominal pelvic adenopathy. Soft tissues are unremarkable. Right total hip arthroplasty. Advanced degenerative changes in the spine with mild anterior wedge compression deformity at L1. Prominent Schmorl's node superior endplate of L2. Impression: 1. Extensive colonic stool burden with dilation of the rectum to 8.7 cm. No evidence of stercoral colitis. No evidence of small bowel obstruction. 2. Moderate partially visualized hiatal hernia. 3. Age-indeterminate mild anterior wedge deformity of L1 vertebral body. 4. Gallbladder sludge or small stones. ------ Exposure: One or more of the following individualized dose reduction techniques were utilized for this examination: 1. Automated exposure control 2. Adjustment of the mA and/or kV according to patient size 3. Use of iterative reconstruction technique. Electronically signed by: Jaun Melvin MD (09/26/2020 11:39 AM) [facility] DICTATED AND SIGNED BY: JAUN MELVIN MD DATE: 09/26/201128 Course & Med Decision Making: Course & Med Decision Making Pertinent Labs and Imaging studies reviewed. (See chart for details) Elderly patient with past medical history of rheumatoid arthritis, parkinsonism, and reported dementia presents from assisted via EMS with report that patient "vomited stool ". Patient's abdomen was distended. Labs obtained and posted to chart. UA via straight cath with signs of infection. Empiric an tibiotic initiated. CT abdomen/pelvis with signs of significant colonic stool burden. Concern for obstipation. Fecal disimpaction attempted but unable to reach stool burden in rectal vault. Patient requiring admission for further evaluation and treatment. Discussed with Dr. Butler (hospitalist) who is in agreement with admission. Discussed findings and plan with patient, who acknowledges understanding and agreement. Dragon Disclaimer: Dragon Disclaimer: This electronic medical record was generated, in whole or in part, using a voice recognition dictation system. Departure Departure: Impression: Primary Impression: Obstipation Additional Impression: Acute UTI Disposition: 09 ADMITTED INPT THIS HOSP Admitting Physician: Balwinder Butler Condition: STABLE Referrals: EMIL UREÑA (PCP) HARPER BERNAL DO Sep 26, 2020 10:22
[2020-09-26 10:25] LABS: BASO # 0.1 x10^3/uL (0.0-0.2); BASO % 1 % (0-3); EOS # 0.1 x10^3/uL (0.0-0.7); EOS % 1 % (0-3); HEMATOCRIT 38.5 % (36.0-47.0); HEMOGLOBIN 12.7 g/dL (12.0-15.5); LYMPH # 1.4 x10^3/uL (1.0-4.8); LYMPH % 14 % (24-48); MEAN CORPUSCULAR HEMOGLOBIN 34 pg (25-35); MEAN CORPUSCULAR HGB CONC 33 g/dL (31-37); MEAN CORPUSCULAR VOLUME 103 fL (79-100); MONO % 10 % (0-9); NEUT # 7.3 x10^3uL (1.8-7.7); NEUT % 74 % (31-73); PLATELET COUNT 336 x10^3/uL (140-400); RED BLOOD COUNT 3.76 x10^6/uL (3.50-5.40); WHITE BLOOD COUNT 9.9 x10^3/uL (4.0-11.0)
[2020-09-26 10:38] LABS: CALCIUM 9.4 mg/dL (8.5-10.1); CREATININE 0.6 mg/dL (0.6-1.0); GFR 99.4; POTASSIUM 4.3 mmol/L (3.5-5.1)
[2020-09-26 10:53] LABS: ALBUMIN 3.2 g/dL (3.4-5.0); TOTAL BILIRUBIN 0.2 mg/dL (0.2-1.0); TOTAL PROTEIN 6.5 g/dL (6.4-8.2)
[2020-09-26] MEDS ORDERED: IOHEXOL 300 MG/ML 75 ML VIAL. IV ONE (11:00)
--- NOTE | 2020-09-26 11:42 | RAD ---
CT ABDOMEN+PELVIS W History: Reason: abdominal pain, N/V eval for obstruction / Spl. Instructions: / History: Comparison: None. Technique: CT of the abdomen and pelvis with intravenous contrast. Findings: Minimal bibasilar atelectasis. No pleural or pericardial effusion. Visualized liver is unremarkable. Layering density within the gallbladder may represent sludge or sma ll stones. No biliary ductal dilatation. Mild pancreatic atrophy. Unremarkable spleen and adrenal gla nds. Unremarkable kidneys. No bladder wall thickening. Incompletely visualized moderate hiatal hernia. No evidence of small bowel obstruction. Mild equaliza tion of the terminal ileum. Extensive well-formed stool distends the entire colon to the rectum. The rectum is dilated to 8.7 cm without evidence of wall thickening or pneumatosis. No pelvic masses. No free fluid or free air. Mild aortoiliac atherosclerotic calcification. No abdomi nal pelvic adenopathy. Soft tissues are unremarkable. Right total hip arthroplasty. Advanced degenerative changes in the spi ne with mild anterior wedge compression deformity at L1. Prominent Schmorl's node superior endplate o f L2. Impression: 1. Extensive colonic stool burden with dilation of the rectum to 8.7 cm. No evidence of stercoral co litis. No evidence of small bowel obstruction. 2. Moderate partially visualized hiatal hernia. 3. Age-indeterminate mild anterior wedge deformity of L1 vertebral body. 4. Gallbladder sludge or small stones. ------ Exposure: One or more of the following individualized dose reduction techniques were utilized for thi s examination: 1. Automated exposure control 2. Adjustment of the mA and/or kV according to patient size 3. Use of iterative reconstruction technique. Electronically signed by: Jaun Faith MD (09/26/2020 11:39 AM) [facility]
[2020-09-26 13:36] LABS: BILIRUBIN,URINE NEG (NEG); CLARITY,URINE CLOUDY; COLOR,URINE YELLOW; GLUCOSE,URINE 100 mg/dL (NEG)
[2020-09-26 13:37] LABS: NITRITE,URINE NEG (NEG); UROBILINOGEN,URINE 0.2 mg/dL (0.2 mg/dL)
[2020-09-26] MEDS ORDERED: ONDANSETRON PF 4 MG/2 ML VIAL. IVP PRN (14:15)
[2020-09-26] MEDS ORDERED: cefTRIAXone SODIUM 1 GM VIAL ONE (14:17)
[2020-09-26] MEDS ORDERED: IV NORMAL SALINE 50ML 50 ML ONE (14:17)
--- NOTE | 2020-09-26 16:09 | HP ---
ADMIT DATE: 09/26/2020 ATTENDING PHYSICIAN: Dr. Middleton CHIEF COMPLAINT: Vomiting up stool. HISTORY OF PRESENT ILLNESS: The patient is a 70-year-old female, longterm resident with multiple medical issues. We know her from a previous admission in ____. She has been vomiting up stool. She has a large fecal impaction, unable to disimpacted from a rectal standpoint, it is in her distal colon. She is admitted then with fecal impaction due to inactivity. PAST MEDICAL HISTORY: Significant for chronic anticoagulation, schizoaffective disorder, catatonic state, dementia, gastroesophageal reflux disease, generalized debilitation, Parkinson's disease and completely bedridden. ALLERGIES: She has allergies to SULFA DRUGS, ESCITALOPRAM, OXCARBAZEPINE AND LAC-HYDRIN, exact reactions unclear. CURRENT MEDICATIONS: Include Tylenol, Eliquis, aspirin, Lipitor, calcium, cholecalciferol, Klonopin, docusate, ertapenem, fluphenazine, Lasix, hydrocodone, lactase, lactobacillus, Synthroid, loratadine, lorazepam, multivitamin, nystatin, Protonix, MiraLax, potassium supplementation, Restoril, tramadol, trazodone, Artane and Effexor. SOCIAL HISTORY: She is a nonsmoker, nondrinker. FAMILY HISTORY: Unobtainable. REVIEW OF SYSTEMS: Significant for the longterm report. She is demented and confused and unfortunately unobtainable. PHYSICAL EXAMINATION: GENERAL: When I saw her, this is a chronically ill-appearing female who was responsive. INITIAL VITAL SIGNS: Showed blood pressure 160/93 mmHg, pulse is 110 and regular. She was afebrile, oxygen saturation 98% on room air. HEENT: Head is without trauma. Pupils are reactive. Sclerae nonicteric. Oropharynx clear with poor dental repair. NECK: Supple, no bruits or stridor. LUNGS: Shallow respirations. CARDIOVASCULAR: Showed regular heart tones. No gallops. ABDOMEN: Distended. Minimal guarding. No rebound tenderness. Bowel sounds were hypoactive. EXTREMITIES: Showed trace edema with ____ wasting. She is nonambulatory. LABORATORY DATA: Hemoglobin 12.7 g, white count 9900. Chemistry panel: Creatinine 0.6 mg percent. Transaminases are normal. Electrolytes are within normal range. Cardiac enzymes are negative for coronary ischemia. CT of the abdomen and pelvis showed extensive colon stool burden with dilatation of the rectum to 8.7 cm, gallbladder sludge, no other pathology identified. ASSESSMENT: 1. A 70-year-old female, longterm resident with obstipation. 2. ____ impaction. 3. Schizoaffective disorder. 4. Underlying dementia. 5. Generalized debilitation. 6. Parkinson's disease. PLAN: 1. Admit to the inpatient unit. 2. Magnesium citrate from above. 3. Home meds have been held. 4. We will try Dulcolax suppositories from below. QIAN MIDDLETON MD DR: YAO/caleb JOB#: [id number] / [id number]
[2020-09-26] MEDS ORDERED: MAGNESIUM CITRATE 296 ML SOLUTION. PO ONE (16:15)
[2020-09-26] MEDS ORDERED: BISACODYL 10 MG SUPP.RECT PR ONE (16:15)
--- NOTE | 2020-09-26 16:16 | NUR ---
ADMISSION-PT ARRIVES VIA EMS FROM ED. SHE IS ON RA, SL-PIV. APPEARS IN NO DISTRESS. SLIDE-TRANSFERRED FROM STRETCHER TO BED. VS ASSESSED, SHE IS NON-TELE. CONTACTED GROUP HOME ET REC'D ADDITIONAL REPORT FROM NURSE, LISA. PT IS POOR HISTORIAN, FAMILY HISTORY QUESTIONS NOT ANSWERED AT THIS TIME.
[2020-09-26 16:37] VITALS: BP 148/86
[2020-09-26] MEDS ORDERED: ONDA4TAB7 PO (16:48)
[2020-09-26] MEDS ORDERED: BACL10TA PO (16:48)
[2020-09-26] MEDS ORDERED: LORA-254 PO (16:48)
[2020-09-26] MEDS ORDERED: CALC300T4 PO (16:48)
[2020-09-26] MEDS ORDERED: POTA20PA30 PO (16:48)
[2020-09-26] MEDS ORDERED: MAGN400O7 PO (16:48)
[2020-09-26] MEDS ORDERED: ZOLP5TAB PO (16:48)
[2020-09-26] MEDS ORDERED: TRIH2TAB3 PO (16:48)
--- NOTE | 2020-09-26 17:29 | NUR ---
NURSING-PT SKIN IS CLEAN, DRY ET INTACT. MOBILITY IS OVERALL POOR RELATED TO CONTRACTURES OF HANDS ET FEET, ET STIFFNESS IN LARGE JOINTS. [facility] PT IS [facility] ONLY FOR TRANSFERS IN THEIR FACILITY. ALL THINGS CONSIDERED, SPECIALTY BED REQUESTED FROM [facility] WORKER AT THIS TIME, TO ASSIST IN MAINTAINING SKIN INTEGRITY ALONG WITH OTHER PREVENTATIVE MEASURES.
[2020-09-26 19:20] VITALS: BP 150/88
[2020-09-26 23:00] VITALS: BP 116/74
[2020-09-27 05:23] VITALS: BP 106/63
[2020-09-27 10:40] VITALS: BP 151/79
--- NOTE | 2020-09-27 13:45 | NUR ---
Wound Care Received consultation for a torn fingernail. Called and spoke with ROB Tao re: having Dr. Ross assess and order antibiotic ointment if he thinks it's necessary. Wound care to sign off.
[2020-09-27 14:43] VITALS: BP 164/90
[2020-09-27] MEDS ORDERED: ACETAMINOPHEN 325 MG TABLET PO PRN (15:30)
[2020-09-27] MEDS ORDERED: MAGNESIUM CITRATE 296 ML SOLUTION. PO ONE (15:30)
[2020-09-27] MEDS ORDERED: POLYETHYLENE GLYCOL 3350 17 GM PACKET. PO PRN (15:30)
[2020-09-27] MEDS ORDERED: MAGNESIUM HYDROXIDE 2,400 MG/30 ML ORAL.SUSP. PO PRN (15:30)
[2020-09-27] MEDS: ONDANSETRON ODT 4 MG TAB.RAPDIS PO SCH (16:30)
--- NOTE | 2020-09-27 17:14 | PN ---
DATE: 09/27/2020 SUBJECTIVE: The patient is a 70-year-old female patient, a [facility] resident with multiple medical issues. She apparently was brought to the Emergency Room with recurrent episode of vomiting. She came from medical house. She is demented at her baseline, which limited history: The patient has history of dementia and parkinsonism. According to the facility, her vomitus looked like stool. She was sweating upon exam, but apparently her baseline. She was evaluated in the Emergency Room and apparently was diagnosed with severe obstipation and UTI and was admitted and started on bisacodyl, magnesium citrate, sodium and IV fluid. Apparently, she has only small liquidy stools, but the patient continued to complain of abdominal pain. PHYSICAL EXAMINATION: GENERAL: When I examined her this afternoon, she was resting slightly propped up in bed, in no apparent distress. She was somewhat pale, but no jaundice, cyanosis or thyromegaly. No jugular venous distention. No lower limb edema. VITAL SIGNS: Her heart rate was 93, blood pressure was 164/90, temperature was 97.7, respiratory rate was 18 and oxygen saturation was 95%. HEAD, EYES, EARS, NOSE, AND THROAT: Showed normocephalic, atraumatic. NECK: Supple. HEART: Showed normal first and second heart sounds. No gallop, rub or murmur. CHEST: Clear to auscultation. No crepitation or rhonchi. ABDOMEN: Slightly distended, soft, nontender. No guarding or rigidity. No organomegaly. All hernial orifice intact. Bowel sounds normal. NEUROLOGIC: She is awake, alert, responding appropriately. All her cranial nerves seem to be grossly intact; however, she has fixed flexion contraction of both upper and lower extremities. RECTAL: I did a rectal exam. The patient was impacted and I did digital disimpaction and removed all the hard stool. She apparently has overflow incontinence with liquid stool was coming around. PLAN: I reconciled all her medication and held basically her narcotic, baclofen, apixaban, aspirin, Tramadol and hydrocodone, continued with all other medication. I also held her furosemide, potassium chloride, and calcium and they may contributing to her constipation. I will check her thyroid function test and repeat all her lab works tomorrow and add bottle mag citrate and decide the further management accordingly. CHANO ESCUDERO MD DR: ERICH/caleb JOB#: [id number] / [id number]
[2020-09-27] MEDS: ZOLPIDEM 5 MG TABLET. PO SCH (19:58)
[2020-09-27] MEDS: LACTOBACILLUS RHAMNOSUS GG 1 CAPSULE. PO SCH (19:58)
[2020-09-27] MEDS: LORazepam 1 MG TABLET PO SCH (19:58)
[2020-09-27] MEDS: traZODone 50 MG TABLET. PO SCH (19:58)
[2020-09-27] MEDS: TRIHEXYPHENIDYL 2 MG TABLET. PO SCH (20:01)
[2020-09-27] MEDS: VENLAFAXINE 50 MG TABLET. PO SCH (20:01)
[2020-09-27] MEDS: BENZTROPINE MESYLATE 1 MG TABLET PO SCH (20:01)
[2020-09-27] MEDS: fluPHENAZine 5 MG/ML ORAL.CONC SOLUTION. PO SCH (20:04)
[2020-09-27 20:39] VITALS: BP 147/82
[2020-09-27 23:18] VITALS: BP 103/67
[2020-09-28 05:31] VITALS: BP 103/66
[2020-09-28] MEDS: LEVOTHYROXINE 75 MCG TABLET PO SCH (05:39)
[2020-09-28 06:18] LABS: HEMATOCRIT 28.6 % (36.0-47.0); HEMOGLOBIN 9.7 g/dL (12.0-15.5); RED BLOOD COUNT 2.86 x10^6/uL (3.50-5.40); WHITE BLOOD COUNT 7.4 x10^3/uL (4.0-11.0)
[2020-09-28 06:38] LABS: ALBUMIN 2.7 g/dL (3.4-5.0); ALBUMIN/GLOBULIN RATIO 0.9 (1.0-1.7); CREATININE 0.6 mg/dL (0.6-1.0); GFR 99.4; POTASSIUM 3.1 mmol/L (3.5-5.1); TOTAL BILIRUBIN 0.4 mg/dL (0.2-1.0); TOTAL PROTEIN 5.7 g/dL (6.4-8.2)
[2020-09-28] MEDS: ONDANSETRON ODT 4 MG TAB.RAPDIS PO SCH ×3 (07:30→17:45)
[2020-09-28] MEDS: MULTIVITAMIN with MINERAL TABLET. PO SCH (09:00)
[2020-09-28] MEDS: VENLAFAXINE 50 MG TABLET. PO SCH ×3 (09:00→20:00)
[2020-09-28] MEDS: LACTASE 3,000 UNIT TABLET PO SCH (09:00)
[2020-09-28] MEDS: TRIHEXYPHENIDYL 2 MG TABLET. PO SCH ×3 (09:00→19:59)
[2020-09-28] MEDS: CETIRIZINE HCL 10 MG TABLET PO SCH (09:00)
[2020-09-28] MEDS: PANTOPRAZOLE 40 MG TABLET. PO SCH (09:00)
[2020-09-28] MEDS: LACTOBACILLUS RHAMNOSUS GG 1 CAPSULE. PO SCH ×2 (09:00→19:58)
[2020-09-28] MEDS: BENZTROPINE MESYLATE 1 MG TABLET PO SCH ×2 (09:00→20:00)
[2020-09-28 11:03] VITALS: BP 130/72
[2020-09-28] MEDS: NEOMY/BACITR/POLYMYXIN OINT PACKET. TP SCH ×2 (11:31→20:01)
[2020-09-28] MEDS: DOCUSATE SODIUM 100 MG CAPSULE PO SCH (11:31)
[2020-09-28] MEDS: LORazepam 1 MG TABLET PO SCH ×2 (11:31→19:59)
[2020-09-28] MEDS: SENNOSIDES/DOCUSATE 8.6/50MG TABLET. PO SCH (11:31)
--- NOTE | 2020-09-28 11:36 | RAD ---
KUB compared to CT scan of the abdomen and pelvis dated September 26, 2020 for fecal impaction. FINDINGS: There is stool throughout the descending colon to the level the rectum. There are air-fille d large and small bowel loops diffusely, which are more prominent than on the prior CT scan. No patho logic ossifications are seen. Degenerative changes of spine are noted. IMPRESSION: 1. Nonobstructive nonspecific bowel gas pattern with worsening air distention of primarily large flako l. There is stool in the descending colon and rectum. Electronically signed by: Darin Mccabe MD (09/28/2020 11:33 AM) [id number]
[2020-09-28 15:09] VITALS: BP 123/79
[2020-09-28] MEDS ORDERED: POTASSIUM CHLORIDE 20 MEQ TABLET.ER. PO ONE (17:00)
[2020-09-28] MEDS ORDERED: METHYLNALTREXONE 12 MG/0.6 ML VIAL. SQ ONE (17:15)
--- NOTE | 2020-09-28 17:19 | PN ---
DATE: 09/28/2020 SUBJECTIVE: The patient is resting, slightly propped up in bed, in no apparent respiratory distress. She is awake, alert. She is feeling somewhat better than yesterday, although she continued to have some abdominal discomfort. We did yesterday digital disimpaction, large amount of very hard stools were removed. I did repeat KUB yesterday and it showed that there is nonobstructive, nonspecific bowel gas pattern with worsening distension, primarily large bowel. There is stool in the descending colon and rectum. PHYSICAL EXAMINATION: GENERAL: When I examined her this afternoon, she looked well, slightly pale, but no jaundice, cyanosis or thyromegaly. No jugular venous distension. No limb edema. VITAL SIGNS: Her heart rate was 73, blood pressure was 123/79, temperature was 97.9, respiratory rate was 14 and her oxygen saturation was 98%. HEAD, EYES, EARS, NOSE AND THROAT: Showed normocephalic, atraumatic. NECK: Supple. HEART: Showed normal first and second heart sounds. No gallop or murmur. CHEST: Clear to auscultation. No crepitation or rhonchi. ABDOMEN: Distended, soft, nontender. NEUROLOGIC: She is awake, alert, responding appropriately. All cranial nerves are intact. She moves upper extremities to much good extent than lower extremities. She has fixed flexion contraction of both lower extremities. Her intake over the last 24 hours was 800, no output was recorded. LABORATORY DATA: Her lab work this morning showed a white cell count 7400, hemoglobin 9.7, hematocrit 28.6, MCV 100, and platelet count 274,000. Her chemistry showed a serum sodium 139, potassium 3.1, chloride 103, bicarbonate 29, anion gap of 7, BUN 21, creatinine 0.6, estimated GFR was 99 mL per minute. Her glucose 102, calcium was 8. Total bilirubin, AST, ALT, alkaline phosphatase were normal. Total protein 5.7, albumin 2.7. Her TSH was high at 11.088. ASSESSMENT: 1. Severe obstipation that required digital disimpaction, likely due to narcotic-induced. 2. Hypothyroidism. 3. Hypokalemia. PLAN: My plan is to start her on potassium supplement. Advance her diet. I would also treat her with 1 dose of Relistor and I actually did a rectal exam and rectal vault was empty. CHANO ESCUDERO MD DR: ERICH/caleb JOB#: [id number] / [id number]
[2020-09-28 19:53] VITALS: BP 118/68
[2020-09-28] MEDS: POTASSIUM CHLORIDE 20 MEQ TABLET.ER. PO SCH (19:59)
[2020-09-28] MEDS: ZOLPIDEM 5 MG TABLET. PO SCH (19:59)
[2020-09-28] MEDS: traZODone 50 MG TABLET. PO SCH (19:59)
[2020-09-28] MEDS: fluPHENAZine 5 MG/ML ORAL.CONC SOLUTION. PO SCH (20:01)
[2020-09-28 22:17] VITALS: BP 119/68
[2020-09-29 05:16] VITALS: BP 94/59
[2020-09-29] MEDS: LEVOTHYROXINE 75 MCG TABLET PO SCH (05:28)
[2020-09-29 06:30] LABS: CALCIUM 7.9 mg/dL (8.5-10.1); CREATININE 0.6 mg/dL (0.6-1.0); GFR 99.4; MAGNESIUM 2.2 mg/dL (1.8-2.4); POTASSIUM 3.8 mmol/L (3.5-5.1)
[2020-09-29 07:00] LABS: HEMATOCRIT 27.2 % (36.0-47.0); RED BLOOD COUNT 2.68 x10^6/uL (3.50-5.40); RED CELL DISTRIBUTION WIDTH 13.7 % (11.5-14.5); WHITE BLOOD COUNT 6.5 x10^3/uL (4.0-11.0)
[2020-09-29] MEDS: LACTOBACILLUS RHAMNOSUS GG 1 CAPSULE. PO SCH (09:20)
[2020-09-29] MEDS: NEOMY/BACITR/POLYMYXIN OINT PACKET. TP SCH (09:20)
[2020-09-29] MEDS: DOCUSATE SODIUM 100 MG CAPSULE PO SCH (09:20)
[2020-09-29] MEDS: CETIRIZINE HCL 10 MG TABLET PO SCH (09:20)
[2020-09-29] MEDS: POTASSIUM CHLORIDE 20 MEQ TABLET.ER. PO SCH ×2 (09:20→13:47)
[2020-09-29] MEDS: LORazepam 1 MG TABLET PO SCH (09:20)
[2020-09-29] MEDS: PANTOPRAZOLE 40 MG TABLET. PO SCH (09:20)
[2020-09-29] MEDS: SENNOSIDES/DOCUSATE 8.6/50MG TABLET. PO SCH (09:21)
[2020-09-29] MEDS: MULTIVITAMIN with MINERAL TABLET. PO SCH (09:21)
[2020-09-29] MEDS: LACTASE 3,000 UNIT TABLET PO SCH (09:21)
[2020-09-29] MEDS: ONDANSETRON ODT 4 MG TAB.RAPDIS PO SCH ×2 (09:21→13:47)
[2020-09-29] MEDS: BENZTROPINE MESYLATE 1 MG TABLET PO SCH (09:22)
[2020-09-29] MEDS: VENLAFAXINE 50 MG TABLET. PO SCH ×2 (09:22→13:47)
[2020-09-29] MEDS: TRIHEXYPHENIDYL 2 MG TABLET. PO SCH ×2 (09:22→13:47)
[2020-09-29 11:09] VITALS: BP 91/60
[2020-09-29 15:21] VITALS: BP 101/64
--- NOTE | 2020-09-29 15:37 | DISCH ---
DISCHARGE ORDERS DISCHARGE DATE: Sep 29, 2020 FINAL DIAGNOSIS severe constipation parkinson disease CONDITION AT DISCHARGE: Stable Code Status: Full SNF STAY <30 DAYS: Yes POST DISCHARGE ORDERS: ACTIVITY ORDERS: Resume previous activity, Activity as tolerated WEIGHT BEARING STATUS: As tolerated TREATMENT/EQUIPMENT ORDERS: ADAPTIVE EQUIPMENT NEEDED: None DISCHARGE MEDICATIONS: Home Meds Reported Medications Ondansetron Hcl (ZOFRAN) 4 Mg Tablet, 4 MG PO TIDBFRMEAL for NAUSEA, TAB 09/26/20 Calcium Carbonate (TUMS X-STR) 300 Mg Tab.chew, 2 TAB PO PRN Q6HRS PRN for HEARTBURN / GAS, TAB.CHEW 09/26/20 Trihexyphenidyl Hcl (TRIHEXYPHENIDYL HCL) 2 Mg Tablet, 2 MG PO TID for DYSTONIA, TAB 09/26/20 Potassium Chloride (KLOR-CON) 20 Meq Packet, 60 MEQ PO DAILY for SUPPLEMENT, PKT 09/26/20 Magnesium Hydroxide (MILK OF MAGNESIA) 400 Mg/5 Ml Oral.susp, 30 ML PO PRN DAILY PRN for CONSTIPATION, LIQUID 09/26/20 Lorazepam (ATIVAN) 1 Mg Tablet, 1 TAB PO BID for anxiety MDD 2 Tablet(s), TAB 0 Refills 09/26/20 Baclofen (BACLOFEN) 10 Mg Tablet, 10 MG PO TID for MUSCLE RELAXER, 0 Refills 09/26/20 Zolpidem Tartrate (AMBIEN) 5 Mg Tablet, 5 MG PO HS for INSOMNIA, TAB 0 Refills 09/26/20 Cholecalciferol (Vitamin D3) (VITAMIN D) 400 Unit Tablet, 800 UNIT PO DAILY for supplement, TAB 06/05/20 Trazodone Hcl (TRAZODONE HCL) 50 Mg Tablet, 0.5 TAB PO QHS for insomnia, #30 TAB 1 Refill 06/05/20 Tramadol Hcl (TRAMADOL HCL) 50 Mg Tablet, 50 MG PO HS for pain, TAB 06/05/20 Sennosides/Docusate Sodium (Senna-Docusate Sodium Tablet) 1 Each Tablet, 2 TAB PO DAILY for constipation for 5 Days, #10 TAB 0 Refills 06/05/20 Pantoprazole Sodium (PANTOPRAZOLE SODIUM) 40 Mg Tablet.dr, 1 TAB PO DAILY for gastrointestinal bleed, #30 TAB 3 Refills 06/05/20 Nystatin (NYSTATIN) 15 Gm Powder, 1 AYESHA TP PRN Q8HRS PRN for REDNESS for 7 Days, #1 BOTTLE 0 Refills apply to affected area(s) 06/05/20 Multivitamin (MULTI VITAMIN DAILY) 1 Each Tablet, 1 TAB PO DAILY for supplement for 30 Days, #30 TAB 0 Refills 06/05/20 Polyethylene Glycol 3350 (MIRALAX) 17 Gm Powd.pack, 1 PACKET PO PRN DAILY PRN for CONSTIPATION for 2 Days, PACKET 0 Refills dissolve in water 06/05/20 Loratadine (LORATADINE) 10 Mg Tab.rapdis, 1 TAB PO DAILY for pruritus for 30 Days, #30 TAB 0 Refills 06/05/20 Levothyroxine Sodium (LEVOTHYROXINE SODIUM) 75 Mcg Tablet, 1 TAB PO DAILY for hypothyriodism, #30 TAB 5 Refills 06/05/20 Furosemide (LASIX) 20 Mg Tablet, 20 MG PO DAILY for edema, TAB 06/05/20 Lactase (Lactaid) 3,000 Unit Tablet, 9000 UNIT PO DAILY for schizoaffective disorder, TAB 06/05/20 Hydrocodone Bit/Acetaminophen (HYDROCODONE-APAP 5-325 ) 1 Each Tablet, 1 TAB PO PRN Q4HRS PRN for PAIN, TAB 0 Refills 06/05/20 Fluphenazine Hcl (FLUPHENAZINE HCL) 5 Mg Tablet, 6 TAB PO QHS for schizoaffective disorder, #30 TAB 1 Refill 06/05/20 Apixaban (ELIQUIS) 2.5 Mg Tablet, 2.5 MG PO BID for VTE, TAB 06/05/20 Venlafaxine Hcl (EFFEXOR XR) 150 Mg Cap.er.24h, 1 CAP PO DAILY for major depressive disorder, #30 CAP 1 Refill 06/05/20 Docusate Sodium (DOCUSATE SODIUM) 100 Mg Capsule, 1 CAP PO DAILY for constipation for 30 Days, #30 CAP 0 Refills 06/05/20 Benztropine Mesylate (BENZTROPINE MESYLATE) 2 Mg Tablet, 1 TAB PO BID for anxiety, #60 TAB 1 Refill 06/05/20 Aspirin (Children's Aspirin) 81 Mg Tab.chew, 1 TAB PO DAILY for VTE for 30 Days, #30 TAB 0 Refills 06/05/20 Lactobacillus Acidophilus (ACIDOPHILUS) 1 Each Capsule, 1 CAP PO TID for health maintance for 14 Days, #42 CAP 0 Refills 06/05/20 Acetaminophen (ACETAMINOPHEN) 325 Mg Tablet, 2 TAB PO PRN Q6HRS PRN for pain or fever for 30 Days, #30 TAB 0 Refills 06/05/20 Discontinued Reported Medications Ertapenem Sodium (INVANZ) 1 Gm Vial, 1 GM IV DAILY for infection for 7 Days, #7 EACH 06/09/20 Trihexyphenidyl Hcl (TRIHEXYPHENIDYL HCL) 2 Mg Tablet, 1 TAB PO DAILY for dystonia, #60 TAB 1 Refill 06/05/20 Temazepam (TEMAZEPAM) 15 Mg Capsule, 0.05 CAP PO QHS for insomnia, #30 CAP 1 Refill 06/05/20 Potassium Citrate (POTASSIUM CITRATE ER) 15 Meq Tablet.er, 4 TAB PO DAILY for supplement for 30 Days, #120 TAB 0 Refills 06/05/20 Calcium Carbonate/Vitamin D3 (CALCIUM 500 + VIT D 200 CAPLET) 1 Each Tablet, 1 TAB PO DAILY for supplement for 30 Days, #30 TAB 0 Refills 06/05/20 Atorvastatin Calcium (LIPITOR) 20 Mg Tablet, 20 MG PO QHS for hyperlipidemia, #30 TAB 0 Refills 06/05/20 Clonazepam (KLONOPIN) 1 Mg Tablet, 1 TAB PO DAILY for schizoaffective disorder, #90 TAB 1 Refill 06/05/20 Lorazepam (ATIVAN ) 0.5 Mg Tablet, 0.5 MG PO PRN BID PRN for ANXIETY, TAB 06/05/20 CHANO ESCUDERO MD Sep 29, 2020 15:37
--- NOTE | 2020-09-29 16:19 | NUR ---
PATIENT IS DISCHARGED BACK TO [facility]. REPORT GIVEN TO RONI RIVAS. PATIENT LEFT ROOM 105 VIA EMS.
--- NOTE | 2020-09-29 18:20 | DS ---
DATE OF DISCHARGE: 09/29/2020 HOSPITAL COURSE: The patient is a 70-year-old female patient, a resident at [facility], who was brought to the Emergency Room with a complaint of abdominal pain and fecal impaction. I actually did digital disimpaction. A large amount of rock-hard stool was removed. We did it actually twice and she was treated with a bottle of mag citrate and also Relistor and she had further some more bowel movement and she did very well. We did advance her diet and she has had no more abdominal pain. PHYSICAL EXAMINATION: GENERAL: When I saw her today, she looked well and was clearly in no apparent distress. Denied any complaint. When I examined her, she looked somewhat pale, but no jaundice, cyanosis or thyromegaly. No jugular venous distention. No limb edema. VITAL SIGNS: Her heart rate was 89, blood pressure was 101/64, temperature 98.3, respiratory rate was 16, and oxygen saturation was 90% on room air. The rest of the exam is stable. LABORATORY DATA: Her lab work this morning showed a white cell count of 6500, hemoglobin 9, hematocrit 27, MCV 101, and platelet count 257,000. Her serum sodium was 137, potassium 3.8, chloride 103, bicarbonate 26, anion gap of 8, BUN 11, creatinine 0.6 cm. Estimated GFR was 99 mL per minute. Her glucose was 82, calcium was 7.9. Her TSH was high at 11.088. I did not adjust her levothyroxine and left to her primary care physician at [facility] to do. FINAL DISCHARGE DIAGNOSES: 1. Fecal impaction, requiring digital disimpaction twice, likely due to narcotic-induced constipation, treated with digital disimpaction as well as Relistor. 2. Hypothyroidism. Her TSH is high and her Synthroid needs to be adjusted. 3. Hypokalemia, resolved. Her serum potassium is 3.8. CHANO ESCUDERO MD DR: ERICH/caleb JOB#: [id number] / [id number] Cori Ash
== END 2020-09-29 16:25 | DRG 391 ==
LOC: ER 09:53 → 1 SOUTH 14:10
PROVIDERS: ADMIT Hospitalist; ATTEND Hospitalist
DX: K59.03 Drug induced constipation (principal); E43 Unspecified severe protein-calorie malnutrition; N39.0 Urinary tract infection, site not specified; E03.9 Hypothyroidism, unspecified; E87.6 Hypokalemia; F02.80 Dementia in other diseases classified elsewhere, unspecified severity, without behavioral disturbance, psychotic disturbance, mood disturbance, and anxiety; F25.9 Schizoaffective disorder, unspecified; G20 Parkinson's disease; I06.0 Rheumatic aortic stenosis; I10 Essential (primary) hypertension; K44.9 Diaphragmatic hernia without obstruction or gangrene; K82.8 Other specified diseases of gallbladder; M06.9 Rheumatoid arthritis, unspecified; M79.7 Fibromyalgia; T40.605A Adverse effect of unspecified narcotics, initial encounter; Z79.01 Long term (current) use of anticoagulants; F32.9 Major depressive disorder, single episode, unspecified; F41.9 Anxiety disorder, unspecified; J40 Bronchitis, not specified as acute or chronic; K21.9 Gastro-esophageal reflux disease without esophagitis; M19.90 Unspecified osteoarthritis, unspecified site; Z74.01 Bed confinement status; Z68.27 Body mass index [BMI] 27.0-27.9, adult
CPT/HCPCS: 36415; 74018; 74177; 80048; 80053; 81003; 82553; 83605; 83690; 83735; 84443; 84484; 85025; 85027; 85610; 85730; 96374; 96375; J0696; J2212; J2405; J3010; J3490; Q0162; 99285-25; J7030

== ENCOUNTER 2020-10-18 10:05 | Emergency (ER) | payer OTHER ==
[~2020-10-18] VITALS: Ht 152.4 cm; Wt 64.7 kg
[~2020-10-18 10:05] MED LIST changes: +BACL10TA PO; +CALC300T4 PO; +LORA-254 PO; +MAGN400O7 PO; +ONDA4TAB7 PO; +POTA20PA30 PO; +ZOLP5TAB PO
--- NOTE | 2020-10-18 10:16 | PHYS DOC ---
Past History Past Medical History: Anxiety, Arthritis, Bipolar, Bronchitis, Constipation, Dementia, Depression, Fibromyalgia, GERD, Hypertension, Hypothyroid, Schizophrenia, Other Additional Past Medical Histor: Parkinsonism,muscle weakness, abonormal posture;rheumatic aortic stenosis Past Surgical History: Other Additional Past Surgical Histo: unknown surgical hx Smoking: Non-smoker Alcohol Use: None Drug Use: None General Adult EDM: Chief Complaint: CONTISPATION HPI: HPI: Patient is a 70-year-old female brought in from nursing facility after she had foul-smelling, fecal-like emesis this morning. Was admitted for a similar episode 3 weeks ago treated with an NG tube. She was diagnosed with a large amount of fecal impaction. Patient says she has some generalized abdominal pain, does not remember how many times she vomited this morning. Review of Systems: Review of Systems: All other systems within normal limits except for as noted in the HPI Allergies: Allergies: Allergies Coded Allergies Type Severity Reaction Last Updated Verified lactic acid Allergy Intermediate 09/27/20 Yes I S O L A T I O N *CONTACT* Allergy Unknown 06/08/20 Yes Sulfa (Sulfonamide Antibiotics) Allergy Unknown 06/07/20 Yes escitalopram Allergy Unknown 06/04/20 Yes oxcarbazepine Allergy Unknown 06/04/20 Yes Physical Exam: PE: Constitutional: Well developed, well nourished, no acute distress, non-toxic appearance. [] HENT: Normocephalic, atraumatic, bilateral external ears normal, nose normal. [] Eyes: PERRLA, conjunctiva normal, no discharge. [] Neck: No rigidity, supple, no stridor. [] Cardiovascular: Regular rate and rhythm, brisk cap refill [] Lungs & Thorax: Non labored symmetric respirations, no tachypnea or respiratory distress [] Abdomen: Soft, nondistended, generalized tenderness palpation, no guarding or rebound. Skin: Warm, dry, no erythema, no rash. [] Back: Unremarkable Extremities: Diffuse contractures, no deformity [] Neurologic: Alert and oriented X 3, no focal deficits noted. [] Psychologic: Affect normal, judgement normal, mood normal. [] EKG: EKG: [] Radiology/Procedures: Radiology/Procedures: CT ABDOMEN+PELVIS WO Clinical Indication: Reason: obstruction Comparison: CT abdomen and pelvis with contrast September 26, 2020. Technique: Helical CT imaging of the abdomen and pelvis is performed without IV or oral contrast. Findings: Evaluation of solid organs and bowel is limited without oral and IV contrast, decreasing sensitivity for detection of pathology. There is minimal atelectasis in the posterior right lower lobe. Lung bases otherwise clear. There is a moderate sized hiatal hernia. There is coronary artery disease. Cardiac size is normal. Respiratory motion artifact limits evaluation of the upper abdomen. No obvious abnormality of the liver, gallbladder, spleen, pancreas, adrenal glands, or abdominal aorta caliber. There is no hydronephrosis. There is no dilated small bowel. The colon is distended with stool. This is most apparent in the rectum measuring up to 9 cm, previously 8.7 cm. No colon wall thickening is identified. The urinary bladder is normal. Uterus unremarkable. No pelvic free fluid is identified. Redemonstrated old compression fractures of the L1 and L2 superior endplates. There is right hip arthroplasty. Mild left convexity thoracolumbar scoliosis. IMPRESSION: 1. Rectum is severely distended with stool suggesting fecal impaction. There is no colitis. 2. Large colon stool volume suggests constipation. 3. Moderate-sized hiatal hernia.[] Heart Score: C/O Chest Pain: N/A Risk Factors: Risk Factors: DM, Current or recent (<one month) smoker, HTN, HLP, family history of CAD, obesity. Risk Scores: Score 0 - 3: 2.5% MACE over next 6 weeks - Discharge Home Score 4 - 6: 20.3% MACE over next 6 weeks - Admit for Clinical Observation Score 7 - 10: 72.7% MACE over next 6 weeks - Early Invasive Strategies Course & Med Decision Making: Course & Med Decision Making Pertinent Labs and Imaging studies reviewed. (See chart for details) No SBO, patient had a relatively large bowel movement here. Will discharge with antibiotics and more complete bowel regimen at the nursing facility for her large rectal fecal burden. [] Roxanne Disclaimer: Roxanne Disclaimer: This electronic medical record was generated, in whole or in part, using a voice recognition dictation system. Departure Departure: Impression: Primary Impression: UTI (urinary tract infection) Disposition: 01 DC HOME SELF CARE/HOMELESS Condition: STABLE Referrals: EMIL UREÑA (PCP) Patient Instructions: Docusate rectal enema Scripts Glycerin (ADULT GLYCERIN) 1 Each Supp.rect 1 EACH RC BID PRN for CONSTIPATION for 10 Days, #20 SUPP.RECT Prov: NASREEN BLANCAS MD 10/18/20 Docusate Sodium (DOCUSOL) 283 Mg Enema 283 MG RC DAILY PRN for CONSTIPATION for 10 Days, #10 EACH Prov: NASREEN BLANCAS MD 10/18/20 Cephalexin (CEPHALEXIN) 500 Mg Capsule 1 CAP PO BID for antibiotic, #20 CAP Prov: NASREEN BLANCAS MD 10/18/20 NASREEN BLANCAS MD Oct 18, 2020 10:16
[2020-10-18 10:47] LABS: BASO % 0 % (0-3); EOS % 1 % (0-3); HEMATOCRIT 35.4 % (36.0-47.0); HEMOGLOBIN 11.7 g/dL (12.0-15.5); LYMPH # 0.2 x10^3/uL (1.0-4.8); LYMPH % 2 % (24-48); MEAN CORPUSCULAR HEMOGLOBIN 33 pg (25-35); MEAN CORPUSCULAR HGB CONC 33 g/dL (31-37); MEAN CORPUSCULAR VOLUME 98 fL (79-100); MONO # 0.2 x10^3/uL (0.0-1.1); MONO % 2 % (0-9); NEUT # 8.1 x10^3uL (1.8-7.7); NEUT % 95 % (31-73); PLATELET COUNT 342 x10^3/uL (140-400); RED BLOOD COUNT 3.61 x10^6/uL (3.50-5.40); RED CELL DISTRIBUTION WIDTH 14.4 % (11.5-14.5); WHITE BLOOD COUNT 8.5 x10^3/uL (4.0-11.0)
--- NOTE | 2020-10-18 11:03 | RAD ---
PQRS Compliance Statement: One or more of the following individualized dose reduction techniques were utilized for this examinat ion: 1. Automated exposure control 2. Adjustment of the mA and/or kV according to patient size 3. Use of iterative reconstruction technique CT ABDOMEN+PELVIS WO Clinical Indication: Reason: obstruction Comparison: CT abdomen and pelvis with contrast September 26, 2020. Technique: Helical CT imaging of the abdomen and pelvis is performed without IV or oral contrast. Findings: Evaluation of solid organs and bowel is limited without oral and IV contrast, decreasing sensitivity for detection of pathology. There is minimal atelectasis in the posterior right lower lobe. Lung bases otherwise clear. There is a moderate sized hiatal hernia. There is coronary artery disease. Cardiac size is normal. Respiratory motion artifact limits evaluation of the upper abdomen. No obvious abnormality of the holger er, gallbladder, spleen, pancreas, adrenal glands, or abdominal aorta caliber. There is no hydronephr osis. There is no dilated small bowel. The colon is distended with stool. This is most apparent in the rect um measuring up to 9 cm, previously 8.7 cm. No colon wall thickening is identified. The urinary bladder is normal. Uterus unremarkable. No pelvic free fluid is identified. Redemonstrated old compression fractures of the L1 and L2 superior endplates. There is right hip arth roplasty. Mild left convexity thoracolumbar scoliosis. IMPRESSION: 1. Rectum is severely distended with stool suggesting fecal impaction. There is no colitis. 2. Large colon stool volume suggests constipation. 3. Moderate-sized hiatal hernia. Electronically signed by: Sukhwinder Valadez MD (10/18/2020 11:01 AM) [id number]
[2020-10-18 11:51] LABS: CALCIUM 8.8 mg/dL (8.5-10.1); CREATININE 0.6 mg/dL (0.6-1.0); GFR 99.4; POTASSIUM 3.6 mmol/L (3.5-5.1)
[2020-10-18 11:54] LABS: MAGNESIUM 2.1 mg/dL (1.8-2.4); PHOSPHORUS 3.4 mg/dL (2.6-4.7)
[2020-10-18 11:58] LABS: ALBUMIN 3.2 g/dL (3.4-5.0); TOTAL BILIRUBIN 0.2 mg/dL (0.2-1.0); TOTAL PROTEIN 6.5 g/dL (6.4-8.2)
[2020-10-18 12:28] LABS: BILIRUBIN,URINE NEG (NEG); CLARITY,URINE TURBID; COLOR,URINE YELLOW; GLUCOSE,URINE NEG (NEG); NITRITE,URINE POS (NEG); UROBILINOGEN,URINE 0.2 mg/dL (0.2 mg/dL)
[2020-10-18 12:29] LABS: BACTERIA,URINE MANY /HPF (0-FEW); WBC,URINE TNTC /HPF (0-4)
[2020-10-18] MEDS ORDERED: cefTRIAXone SODIUM 1 GM VIAL ONE (13:25)
[2020-10-18] MEDS ORDERED: IV NORMAL SALINE 50ML 50 ML ONE (13:25)
[2020-10-18 13:50] VITALS: BP 138/81
[2020-10-18] MEDS ORDERED: GLYC1SUP RC (13:58)
[2020-10-18] MEDS ORDERED: DOCU283E2 RC (13:58)
[2020-10-18] MEDS ORDERED: CEPH500C PO (13:58)
== END 2020-10-18 14:05 | disposition home or self-care (01) ==
LOC: ER 10:05
DX: N39.0 Urinary tract infection, site not specified (principal); F41.9 Anxiety disorder, unspecified; M19.90 Unspecified osteoarthritis, unspecified site; F03.90 Unspecified dementia, unspecified severity, without behavioral disturbance, psychotic disturbance, mood disturbance, and anxiety; M79.7 Fibromyalgia; K21.9 Gastro-esophageal reflux disease without esophagitis; I10 Essential (primary) hypertension; F20.9 Schizophrenia, unspecified; Z88.2 Allergy status to sulfonamides; Z91.041 Radiographic dye allergy status; Z88.8 Allergy status to other drugs, medicaments and biological substances
CPT/HCPCS: 36415; 51702; 74176; 80053; 81001; 83690; 83735; 84100; 84484; 85025; 87086; 96374; 99285; J0696